=== PATIENT | male | born 1970 | race Caucasian/White ===

== ENCOUNTER → 2017-03-11 | Outpatient (CLI) | payer BC ==
--- NOTE | 2017-03-11 19:45 | EST ---
EXERCISE STRESS AGE: 46 SEX: Male HT: WT: 247 PROTOCOL: STAGE: III DURATION OF EXERCISE: 9:00 HEART RATE REST: 65 BLOOD PRESSURE REST: 134/88 MAXIMUM HEART RATE ACHIEVED: 160 MAXIMUM BLOOD PRESSURE: 251/76 85% MPHR: 150 100% MPHR: 176 METS: 10.5 INDICATIONS: Chest pain. CLINICAL INFORMATION: Baseline heart rate 65 beats per minute. Baseline blood pressure 134/88 mmHg. Baseline 12-lead ECG showed normal sinus rhythm with normal cardiac intervals and early repolarization abnormality inferolaterally. Patient exercised on a Ken protocol for 9 minutes, achieving a peak heart rate of 160 beats per minute. Normal blood pressure response to exercise. There was no ECG evidence for ischemia. No arrhythmias were noted. Nuclear portion of this test will be reported separately. MMODL / IJN: [id number] /
== END | disposition home or self-care (01) ==
LOC: RADNMMAIN 11:07
PROVIDERS: ATTEND Physician Assistant
DX: R07.9 Chest pain, unspecified (principal)
CPT/HCPCS: 93017

== ENCOUNTER 2017-08-25 09:13 | Day surgery (SDC) | payer BC ==
[~2017-08-25 09:13] MED LIST: LACTATED RINGERS 1,000 ML IV SCH; LIDOCAINE 1% 20 ML VIAL (10MG/ML) FOR IV START INTRADERMA PRN
--- NOTE | 2017-08-25 09:54 | P.GSHP ---
History of Present Illness H&P Date: 08/25/17 CHIEF COMPLAINT: Change in bowel habits HISTORY OF PRESENT ILLNESS: The patient is a 47-year-old male who presents for change in bowel habits. Lower endoscopy was offered for further evaluation and management. PAST MEDICAL HISTORY: Please see list. PAST SURGICAL HISTORY: Please see list. MEDICATIONS: Please see list. ALLERGIES: Please see list. SOCIAL HISTORY: No illicit drug use FAMILY HISTORY: No reports of Crohn disease or ulcerative colitis. REVIEW OF ORGAN SYSTEMS: CONSTITUTIONAL: No reports of fevers or chills. PHYSICAL EXAM: VITAL SIGNS: Stable GENERAL: Well-developed pleasant in no acute distress. HEENT: No scleral icterus. Extraocular movements grossly intact. Moist buccal mucosa. NECK: Supple without lymphadenopathy. CHEST: Unlabored respirations. Equal bilateral excursions. CARDIOVASCULAR: Regular rate and rhythm. Distal 2+ pulses. ABDOMEN: Soft, nontender, nondistended. MUSCULOSKELETAL: No clubbing, cyanosis, or edema. ASSESSMENT: 1. Change in bowel habits PLAN: 1. Recommend proceeding with a lower endoscopy Past Medical History Past Medical History: Hyperlipidemia, Hypertension, Sleep Apnea/CPAP/BIPAP Additional Past Medical History / Comment(s): psoriasis. cpap. History of Any Multi-Drug Resistant Organisms: MRSA Date of last positivie culture/infection: 01/06/2010 MDRO Source:: SPUTUM Past Surgical History: Orthopedic Surgery Additional Past Surgical History / Comment(s): CYST REMOVED, RIGHT MIDDLE FINGER. SINUS X 2. HEEL SPUR REMOVED LEFT FOOT. LUNG BX.(MRSA). Past Anesthesia/Blood Transfusion Reactions: No Reported Reaction, Motion Sickness Past Psychological History: Depression Smoking Status: Never smoker Past Alcohol Use History: Rare Past Drug Use History: None Reported - Past Family History Mother Family Medical History: No Reported History Medications and Allergies Home Medications Medication Instructions Recorded Confirmed Type Betamethasone Dipropionate 1 applicate TOPICAL DAILY PRN 08/20/17 08/20/17 History [Betamethasone Dipropionate 0.05%] Enstillar 1 dose TOPICAL DAILY 08/20/17 08/20/17 History Escitalopram [Lexapro] 20 mg PO HS 08/20/17 08/20/17 History Ibuprofen [Motrin Ib] 200 - 400 mg PO Q6H PRN 08/20/17 08/20/17 History Lisinopril [Zestril] 20 mg PO HS 08/20/17 08/20/17 History Simvastatin [Zocor] 20 mg PO HS 08/20/17 08/20/17 History Testosterone Unk Dose 1 ml IM DIRECTED 08/20/17 08/20/17 History buPROPion HCL [Wellbutrin XL] 300 mg PO QAM 08/20/17 08/20/17 History Allergies Allergy/AdvReac Type Severity Reaction Status Date / Time No Known Allergies Allergy Verified 08/25/17 09:35
[2017-08-25 09:56] VITALS: RESP 16; TEMP 97.4
[2017-08-25] MEDS ORDERED: PROPOFOL 10 MG/ML 20 ML VIAL IV ONE (10:36)
--- NOTE | 2017-08-25 10:58 | P.PCN ---
Date of Procedure: 08/25/17 Description of Procedure: PREOPERATIVE DIAGNOSIS: History of rectal bleeding. Family history of colon polyps POSTOPERATIVE DIAGNOSIS: History of rectal bleeding. Family history of colon polyps External hemorrhoids, grade 2 Colon polyp, descending colon OPERATION: Colonoscopy to the ileocecal valve and appendiceal orifice. Colonoscopy with multiple cold forcep biopsies. SURGEON: Alayna Alfonso MD. ANESTHESIA: MAC. INDICATIONS: The patient is a 47-year-old female who presents with rectal bleeding. Benefits and risks were described and informed consent was obtained. DESCRIPTION OF PROCEDURE: The patient had undergone Gatorade, MiraLAX and Dulcolax prep. He had been brought into the operating room and laid in the left lateral decubitus position. After adequate intravenous sedation, the rectum was examined with 2% lidocaine jelly. The prostate was smooth and without abnormality. External hemorrhoids were encountered. The rectal tone was within normal limits. No lesions were palpated in the rectal vault. An Olympus colonoscope was advanced until the ileocecal valve and appendiceal orifice were clearly viewed. The prep was fair with visualization of the mucosal folds. The scope was removed with visualization of each mucosal fold. No scattered diverticulosis was encountered. Colon polyp at 60 cm of 3 mm with cold biopsy forcep. No evidence of focal colitis was found. Retroflexion of the scope demonstrated grade 2 internal hemorrhoids without active bleeding or inflammation. The colon was desufflated. The patient had tolerated the procedure well. Withdrawal time was over 6 minutes. FINDINGS: Internal hemorrhoids, grade 2, no active bleeding External hemorrhoids, grade 2, no active bleeding Anal fissures No arteriovenous malformations. Removal of 1 polyp: - Cold forceps biopsy at 60 cm from the anal verge, 3 mm polyp, descending colon No sigmoid diverticulosis No focal colitis. RECOMMENDATIONS: Repeat colonoscopy at age 52, 2022 Plan - Discharge Summary Discharge Rx Participant: No New Discharge Prescriptions: No Action buPROPion HCL [Wellbutrin XL] 300 mg PO QAM Enstillar 1 dose TOPICAL DAILY Testosterone Unk Dose 1 ml IM DIRECTED Betamethasone Dipropionate [Betamethasone Dipropionate 0.05%] 1 applicate TOPICAL DAILY PRN PRN Reason: PSORIASIS Simvastatin [Zocor] 20 mg PO HS Lisinopril [Zestril] 20 mg PO HS Escitalopram [Lexapro] 20 mg PO HS Ibuprofen [Motrin Ib] 200 - 400 mg PO Q6H PRN PRN Reason: Pain Discharge Medication List Betamethasone Dipropionate [Betamethasone Dipropionate 0.05%] 1 applicate TOPICAL DAILY PRN 08/20/17 [History] Enstillar 1 dose TOPICAL DAILY 08/20/17 [History] Escitalopram [Lexapro] 20 mg PO HS 08/20/17 [History] Ibuprofen [Motrin Ib] 200 - 400 mg PO Q6H PRN 08/20/17 [History] Lisinopril [Zestril] 20 mg PO HS 08/20/17 [History] Simvastatin [Zocor] 20 mg PO HS 08/20/17 [History] Testosterone Unk Dose 1 ml IM DIRECTED 08/20/17 [History] buPROPion HCL [Wellbutrin XL] 300 mg PO QAM 08/20/17 [History]
[2017-08-25 11:11] VITALS: PULSE 58
[2017-08-25 11:31] VITALS: BP 114/51
== END 2017-08-25 11:37 | disposition home or self-care (01) ==
LOC: ORWHC2ENDO 09:13
PROVIDERS: ATTEND Surgery Plastic and Reconstructive Surgery
DX: D12.4 Benign neoplasm of descending colon (principal); K62.5 Hemorrhage of anus and rectum; K64.4 Residual hemorrhoidal skin tags; K60.2 Anal fissure, unspecified; L40.9 Psoriasis, unspecified; K64.1 Second degree hemorrhoids; F32.9 Major depressive disorder, single episode, unspecified; I10 Essential (primary) hypertension; E78.5 Hyperlipidemia, unspecified; G47.33 Obstructive sleep apnea (adult) (pediatric); Z99.89 Dependence on other enabling machines and devices; Z83.71 Family history of colonic polyps; Z79.899 Other long term (current) drug therapy
CPT/HCPCS: 88305; 45380; J2704

== ENCOUNTER 2019-03-09 07:22 | Emergency (ER) | payer BC, OTHER ==
[2019-03-09] MEDS ORDERED: SODIUM CHLORIDE 0.9% 1,000 ML IV ONE (07:49)
[2019-03-09] MEDS ORDERED: ORPHENADRINE 30 MG/ML 2 ML VIAL IVP STA (07:50)
[2019-03-09] MEDS ORDERED: ONDANSETRON 4 MG/2 ML VIAL IVP STA (07:50)
[2019-03-09] MEDS ORDERED: KETOROLAC 30 MG/ML 1 ML VIAL IVP STA (07:50)
[2019-03-09] MEDS ORDERED: SODIUM CHLORIDE 0.9% 1,000 ML IV SCH (08:00)
--- NOTE | 2019-03-09 08:00 | ED ---
Fall HPI - General Chief Complaint: Fall Stated Complaint: lt sided back pain Time Seen by Provider: 03/09/19 07:35 Source: patient, RN notes reviewed, old records reviewed Mode of arrival: ambulatory - History of Present Illness Initial Comments: Patient's 48-year-old male who presents emergency department today with back and left-sided hip pain after slipping on ice and falling yesterday around 6 PM. Patient reports he slept throughout the night. He reports that he woke up today went to work. He states that he went to work he felt that he is having some trouble breathing, feeling nauseous. He states that he is unsure if this is related just to his pain. Patient states that he's had no significant coughing. He states he was able to ambulate and bear weight on his left leg. He denies any paresthesias. - Related Data Home Medications Medication Instructions Recorded Confirmed Escitalopram [Lexapro] 20 mg PO DAILY 08/20/17 03/09/19 Lisinopril [Zestril] 20 mg PO DAILY 08/20/17 03/09/19 Simvastatin [Zocor] 20 mg PO DAILY 08/20/17 03/09/19 buPROPion HCL [Wellbutrin XL] 300 mg PO QAM 08/20/17 03/09/19 Apremilast [Otezla] 30 mg PO DAILY 03/09/19 03/09/19 Testosterone Cypionate 200 mg IM Q14D 03/09/19 03/09/19 [Depo-Testosterone] Previous Rx's Medication Instructions Recorded Ibuprofen [Motrin] 600 mg PO Q8HR PRN #20 tab 03/09/19 Ondansetron [Zofran] 4 mg PO Q8HR PRN #8 tab 03/09/19 Orphenadrine [Norflex] 100 mg PO Q12H #12 tablet.er 03/09/19 Allergies Allergy/AdvReac Type Severity Reaction Status Date / Time No Known Allergies Allergy Verified 03/09/19 08:58 Review of Systems ROS Statement: Those systems with pertinent positive or pertinent negative responses have been documented in the HPI. ROS Other: All systems not noted in ROS Statement are negative. Past Medical History Past Medical History: Hyperlipidemia, Hypertension History of Any Multi-Drug Resistant Organisms: MRSA Date of last positivie culture/infection: unknown MDRO Source:: lungs Past Surgical History: Orthopedic Surgery Additional Past Surgical History / Comment(s): lung biopsy, sinus surgery, bone spur removal Past Psychological History: Depression Smoking Status: Never smoker Past Alcohol Use History: Occasional Past Drug Use History: None Reported General Exam - General Exam Comments Initial Comments: 48-year-old male. Alert and oriented 3. Limitations: no limitations General appearance: alert, in no apparent distress Head exam: Present: atraumatic, normocephalic, normal inspection Eye exam: Present: normal appearance, PERRL, EOMI. Absent: scleral icterus, conjunctival injection, periorbital swelling ENT exam: Present: normal exam, mucous membranes moist Neck exam: Present: normal inspection. Absent: tenderness, meningismus, lymphadenopathy Respiratory exam: Present: normal lung sounds bilaterally. Absent: respiratory distress, wheezes, rales, rhonchi, stridor Cardiovascular Exam: Present: regular rate, normal rhythm, normal heart sounds. Absent: systolic murmur, diastolic murmur, rubs, gallop, clicks GI/Abdominal exam: Present: soft Extremities exam: Present: normal inspection, full ROM, normal capillary refill. Absent: tenderness, pedal edema, joint swelling, calf tenderness Back exam: Present: normal inspection, tenderness (over lumbar spine, no bruising. ) Neurological exam: Present: alert, oriented X3, CN II-XII intact Psychiatric exam: Present: normal affect, normal mood Skin exam: Present: warm, dry, intact, normal color. Absent: rash Course Vital Signs 03/09/19 03/09/19 07:24 08:06 Temperature 98.7 F Pulse Rate 75 67 Respiratory 19 16 Rate Blood Pressure 117/72 99/67 O2 Sat by Pulse 97 99 Oximetry Medical Decision Making - Medical Decision Making 48-year-old male presents today for multiple complaints. Patient reports he s lipped and fell on the ice yesterday complaining of lower back pain and left- sided hip pain. X-rays were reviewed and unremarkable. He also stated that is having some nausea, burning sensation in his abdomen felt slightly short of breath too. Patient's chest x-ray was unremarkable no rib fracture. EKG troponin are negative. Patient's blood work was otherwise unremarkable. Patient continued to play some burning pain in his abdomen. I discussed Imaging study would be CT. CT shows evidence of enteritis. No other acute traumatic injury or fluid in the abdomen. Patient was informed of these results. I discussed the patient's likely starting now some viral enteritis. And can treat for the back pain with muscle relaxers. Discussed close follow-up with regular doctor and return parameters were discussed. - Lab Data Result diagrams: 03/09/19 08:13 03/09/19 08:13 Lab Results 03/09/19 03/09/19 03/09/19 Range/Units 08:13 08:13 08:13 WBC 9.1 (3.8-10.6) k/uL RBC 5.30 (4.30-5.90) m/uL Hgb 15.9 (13.0-17.5) gm/dL Hct 47.2 (39.0-53.0) % MCV 89.0 (80.0-100.0) fL MCH 29.9 (25.0-35.0) pg MCHC 33.6 (31.0-37.0) g/dL RDW 12.2 (11.5-15.5) % Plt Count 196 (150-450) k/uL Neutrophils % 81 % Lymphocytes % 8 % Monocytes % 5 % Eosinophils % 5 % Basophils % 1 % Neutrophils # 7.3 (1.3-7.7) k/uL Lymphocytes # 0.7 L (1.0-4.8) k/uL Monocytes # 0.4 (0-1.0) k/uL Eosinophils # 0.5 (0-0.7) k/uL Basophils # 0.1 (0-0.2) k/uL PT (9.0-12.0) sec INR (<1.2) APTT (22.0-30.0) sec Sodium 138 (137-145) mmol/L Potassium 5.0 (3.5-5.1) mmol/L Chloride 104 (98-107) mmol/L Carbon Dioxide 24 (22-30) mmol/L Anion Gap 10 mmol/L BUN 23 H (9-20) mg/dL Creatinine 1.10 (0.66-1.25) mg/dL Est GFR (CKD-EPI)AfAm >90 (>60 ml/min/1.73 sqM) Est GFR (CKD-EPI)NonAf 80 (>60 ml/min/1.73 sqM) Glucose 99 (74-99) mg/dL Calcium 9.9 (8.4-10.2) mg/dL Total Bilirubin 0.8 (0.2-1.3) mg/dL AST 44 (17-59) U/L ALT 58 H (4-49) U/L Alkaline Phosphatase 67 (38-126) U/L Troponin I <0.012 (0.000-0.034) ng/mL Total Protein 7.9 (6.3-8.2) g/dL Albumin 4.5 (3.5-5.0) g/dL Urine Color Urine Appearance (Clear) Urine pH (5.0-8.0) Ur Specific [place] (1.001-1.035) Urine Protein (Negative) Urine Glucose (UA) (Negative) Urine Ketones (Negative) Urine Blood (Negative) Urine Nitrite (Negative) Urine Bilirubin (Negative) Urine Urobilinogen (<2.0) mg/dL Ur Leukocyte Esterase (Negative) 03/09/19 03/09/19 Range/Units 08:13 09:12 WBC (3.8-10.6) k/uL RBC (4.30-5.90) m/uL Hgb (13.0-17.5) gm/dL Hct (39.0-53.0) % MCV (80.0-100.0) fL MCH (25.0-35.0) pg MCHC (31.0-37.0) g/dL RDW (11.5-15.5) % Plt Count (150-450) k/uL Neutrophils % % Lymphocytes % % Monocytes % % Eosinophils % % Basophils % % Neutrophils # (1.3-7.7) k/uL Lymphocytes # (1.0-4.8) k/uL Monocytes # (0-1.0) k/uL Eosinophils # (0-0.7) k/uL Basophils # (0-0.2) k/uL PT 10.2 (9.0-12.0) sec INR 0.9 (<1.2) APTT 24.9 (22.0-30.0) sec Sodium (137-145) mmol/L Potassium (3.5-5.1) mmol/L Chloride (98-107) mmol/L Carbon Dioxide (22-30) mmol/L Anion Gap mmol/L BUN (9-20) mg/dL Creatinine (0.66-1.25) mg/dL Est GFR (CKD-EPI)AfAm (>60 ml/min/1.73 sqM) Est GFR (CKD-EPI)NonAf (>60 ml/min/1.73 sqM) Glucose (74-99) mg/dL Calcium (8.4-10.2) mg/dL Total Bilirubin (0.2-1.3) mg/dL AST (17-59) U/L ALT (4-49) U/L Alkaline Phosphatase (38-126) U/L Troponin I (0.000-0.034) ng/mL Total Protein (6.3-8.2) g/dL Albumin (3.5-5.0) g/dL Urine Color Yellow Urine Appearance Clear (Clear) Urine pH 5.5 (5.0-8.0) Ur Specific [place] 1.022 (1.001-1.035) Urine Protein Negative (Negative) Urine Glucose (UA) Negative (Negative) Urine Ketones Negative (Negative) Urine Blood Negative (Negative) Urine Nitrite Negative (Negative) Urine Bilirubin Negative (Negative) Urine Urobilinogen <2.0 (<2.0) mg/dL Ur Leukocyte Esterase Negative (Negative) 03/09/19 08:11 EKG performed at 8:03 AM shows normal sinus rhythm nonspecific ST around. Ab normal EKG. Ventricular rate of 68 bpm. Was 142 ms. QRS duration is 80 ms. QT QTc is 36/[address] elevation - Radiology Data Radiology results: report reviewed Chest x-ray shows no acute crit of vomiting process. Healed rib fracture deformity. Further concern for acute compression to Dougherty rebreathing mask could be performed. Lumbar spine shows multilevel hypertrophic changes. Disposition Clinical Impression: Enteritis, Fall, Back pain, Muscle spasm Disposition: HOME SELF-CARE Condition: Good Instructions (If sedation given, give patient instructions): Enteritis (ED), Mesenteric Adenitis (ED), Acute Low Back Pain (ED) Additional Instructions: Please use medication as discussed. Patient should take Motrin and Tylenol for pain. Apply warm compresses over the back and hip. Patient should've a clear liquid diet and use nausea medicine as prescribed. Please follow up with family doctor if symptoms have not improved over the next two days. Please return to the emergency room if your symptoms increase or worsen or for any other concerns. Prescriptions: Ibuprofen [Motrin] 600 mg PO Q8HR PRN #20 tab PRN Reason: Pain Orphenadrine [Norflex] 100 mg PO Q12H #12 tablet.er Ondansetron [Zofran] 4 mg PO Q8HR PRN #8 tab PRN Reason: Nausea And Vomiting Is patient prescribed a controlled substance at d/c from ED?: No Referrals: Kyaw Dorantes MD [Primary Care Provider] - 1-2 days Time of Disposition: 10:55
[2019-03-09 08:07] VITALS: RESP 16
[2019-03-09 08:33] LABS: Basophils # (A) 0.1 k/uL (0-0.2); Basophils % (A) 1 %; Eosinophils # (A) 0.5 k/uL (0-0.7); Eosinophils % (A) 5 %; HCT 47.2 % (39.0-53.0); HGB 15.9 gm/dL (13.0-17.5); Lymphocytes # (A) 0.7 k/uL (1.0-4.8); Lymphocytes % (A) 8 %; MCH 29.9 pg (25.0-35.0); MCHC 33.6 g/dL (31.0-37.0); Monocytes # (A) 0.4 k/uL (0-1.0); Monocytes % (A) 5 %; Neutrophils # (A) 7.3 k/uL (1.3-7.7); Neutrophils % (A) 81 %; Platelet Count 196 k/uL (150-450); RDW 12.2 % (11.5-15.5); WBC 9.1 k/uL (3.8-10.6)
[2019-03-09 08:36] LABS: ALT 58 U/L (4-49); AST 44 U/L (17-59); African American GFR (CKD) >90 (>60 ml/min/1.73 sqM); Albumin 4.5 g/dL (3.5-5.0); Alkaline Phosphatase 67 U/L (38-126); Anion Gap 10 mmol/L; Blood Urea Nitrogen 23 mg/dL (9-20); Calcium 9.9 mg/dL (8.4-10.2); Carbon Dioxide 24 mmol/L (22-30); Chloride 104 mmol/L (98-107); Glucose 99 mg/dL (74-99); Non-African American GFR(CKD) 80 (>60 ml/min/1.73 sqM); Sodium 138 mmol/L (137-145); Total Bilirubin 0.8 mg/dL (0.2-1.3); Total Protein 7.9 g/dL (6.3-8.2)
--- NOTE | 2019-03-09 09:17 | XR ---
EXAMINATION TYPE: XR chest 2V DATE OF EXAM: 03/09/2019 COMPARISON: 02/05/2011 HISTORY: Left-sided chest and rib pain after fall TECHNIQUE: Frontal and lateral views of the chest are obtained. FINDINGS: There is no focal air space opacity, pleural effusion, or pneumothorax seen. The cardiac silhouette size is within normal limits. Healed rib fracture deformities are seen of the left ribs 6 through 8 of the anterior margins. IMPRESSION: No acute cardiopulmonary process. Healed rib fracture deformity. There is further concer n for acute fracture dedicated rib radiographs could be performed.
[2019-03-09 09:20] LABS: INR 0.9 (<1.2); Partial Thromboplastin Time 24.9 sec (22.0-30.0); Prothrombin Time 10.2 sec (9.0-12.0)
--- NOTE | 2019-03-09 09:20 | XR ---
EXAM TYPE: LUMBAR SPINE X RAY SERIES COMPARISON: NONE HISTORY: Pain TECHNIQUE: 3 views are submitted. FINDINGS: Alignment is anatomic. The pedicles are intact. The transverse processes are intact. There is no s pondylolisthesis. Multilevel mild hypertrophic changes are seen. No compression deformities. IMPRESSION: 1. Multilevel hypertrophic changes.
[2019-03-09] MEDS ORDERED: METOCLOPRAMIDE 5 MG/ML 2 ML VIAL IVP STA (09:21)
[2019-03-09 09:34] LABS: Appearance,Urine Clear (Clear); Bilirubin,Urine Negative (Negative); Blood,Urine Negative (Negative); Color,Urine Yellow; Glucose,Urine (UA) Negative (Negative); Ketones,Urine Negative (Negative); Leukocyte Esterase,Urine Negative (Negative); Nitrite,Urine Negative (Negative); PH, Urine 5.5 (5.0-8.0); Protein,Urine Negative (Negative); Specific Gravity,Urine 1.022 (1.001-1.035); Urobilinogen,Urine <2.0 mg/dL (<2.0)
[2019-03-09] MEDS ORDERED: PANTOPRAZOLE 40 MG/10 ML VIAL IVP STA (09:39)
[2019-03-09] MEDS ORDERED: MORPHINE SULFATE 4 MG/ML SYRINGE IVP STA (10:14)
--- NOTE | 2019-03-09 10:33 | CT ---
EXAMINATION TYPE: CT abdomen pelvis w con DATE OF EXAM: 03/09/2019 COMPARISON: NONE HISTORY: 48-year-old male with left flank pain post fall downstairs TECHNIQUE: Contiguous axial scanning of the abdomen and pelvis following administration of 100 ml Iso waldo 300 IV contrast. Delayed images through the kidneys and coronal/sagittal reconstructions perform ed. CT DLP: 1955.6 mGycm Automated exposure control for dose reduction was used. FINDINGS: Heart normal size without pericardial effusion. Lung bases clear without pleural effusion. Liver upper limits of normal in size at 17.1 cm. A couple tiny subcentimeter hypodensities in the hep atic dome too small for accurate CT characterization, likely tiny cysts. Portal venous system is ladd nt. No biliary ductal dilatation. Gallbladder, adrenal glands, kidneys, spleen, and pancreas appear within normal limits. Mildly dilated proximal jejunum measuring up to 3.4 cm and additional scattered prominent fluid-fille d small bowel loops within the remainder of the abdomen are nonspecific. No transition point to sugge st bowel obstruction. Numerous nonenlarged and borderline to mildly enlarged mesenteric lymph nodes measuring up to 8 mm. Normal appendix. Scattered mild stool. No pericolonic inflammatory change. Bladder not distended. No abnormal fluid collection in the pelvis or pelvic lymphadenopathy. Bones: Mild degenerative changes at the hips. Degenerative changes left greater than right SI joints. Mild multilevel degenerative disc disease. IMPRESSION: 1. NO ACUTE TRAUMATIC SEQUELA IDENTIFIED IN THE ABDOMEN OR PELVIS TO EXPLAIN THE PATIENT'S SYMPTOMS. 2. NO NEPHROLITHIASIS OR HYDRONEPHROSIS. 3. MILDLY DILATED PROXIMAL JEJUNAL LOOPS AND PROMINENT FLUID-FILLED SMALL BOWEL LOOPS THROUGHOUT THE REMAINDER OF THE ABDOMEN. GIVEN ADDITIONAL NUMEROUS SCATTERED NONENLARGED AND BORDERLINE TO MILDLY EN LARGED MESENTERIC LYMPH NODES MEASURING UP TO 8 MM, CORRELATE FOR POSSIBLE ENTERITIS/MESENTERIC ADENI TIS.
[2019-03-09] MEDS ORDERED: ONDANSETRON 4 MG ODT STARTER PACK 2 TAB BTL PO STA (11:09)
[2019-03-09 11:11] VITALS: TEMP 98.4
[2019-03-09 11:18] VITALS: BP 141/73; PULSE 80
== END 2019-03-09 11:18 | disposition home or self-care (01) ==
LOC: EC 07:22
DX: M62.830 Muscle spasm of back (principal); K52.9 Noninfective gastroenteritis and colitis, unspecified; M62.838 Other muscle spasm; R06.02 Shortness of breath; E78.5 Hyperlipidemia, unspecified; I10 Essential (primary) hypertension; F32.9 Major depressive disorder, single episode, unspecified; Z79.890 Hormone replacement therapy; Z79.899 Other long term (current) drug therapy; Z86.14 Personal history of Methicillin resistant Staphylococcus aureus infection; W00.0XXA Fall on same level due to ice and snow, initial encounter; Z53.8 Procedure and treatment not carried out for other reasons
CPT/HCPCS: 36415; 93005; 80053; 84484; 85025; 85610; 85730; 81003; 72100; 71046; 74177; 99285; 96374; 96375 ×4; 96361; J2270; J2360; J2405; J1885; S0119; C9113; Q9967